=== PATIENT | female | born 1985 | race American Indian/Alaskan Native ===

== ENCOUNTER 2018-07-27 09:34 | Outpatient (CLI) | payer OTHER | END 2018-07-27 10:49 | disposition home or self-care (01) | LOC: NST 09:34 | DX: Z34.83 Encounter for supervision of other normal pregnancy, third trimester (principal) ==

== ENCOUNTER 2018-08-03 09:44 | Inpatient (IN) | payer OTHER ==
[~2018-08-03] VITALS: Ht 162.6 cm; Wt 190.0 kg
[2018-09-14] MEDS ORDERED: PRENATABS RX T1 EACH PO (03:43)
[2018-09-14] MEDS ORDERED: FE C TABLET1 EACH PO (03:43)
== END 2018-09-16 14:50 | DRG 807 ==
LOC: OB/GYN 09-04 09:00 → LDR 09-14 03:30 → SURG-SUITE 09-14 20:22
PROC: 10E0XZZ Delivery of Products of Conception, External Approach (ICD-10-PCS; principal; 2018-09-14)
PROC: 0KQM0ZZ Repair Perineum Muscle, Open Approach (ICD-10-PCS; 2018-09-14)
PROC: 3E033VJ Introduction of Other Hormone into Peripheral Vein, Percutaneous Approach (ICD-10-PCS; 2018-09-14)
PROC: 4A1HXCZ Monitoring of Products of Conception, Cardiac Rate, External Approach (ICD-10-PCS; 2018-09-14)
DX: O70.1 Second degree perineal laceration during delivery (principal); Z37.0 Single live birth; Z3A.41 41 weeks gestation of pregnancy

== ENCOUNTER 2018-08-31 08:50 | Outpatient (CLI) | payer OTHER | END 2018-08-31 09:45 | disposition home or self-care (01) | LOC: NST 08:50 | DX: Z34.83 Encounter for supervision of other normal pregnancy, third trimester (principal) ==

== ENCOUNTER 2018-09-04 08:47 | Outpatient (CLI) | payer OTHER | END 2018-09-04 09:38 | disposition home or self-care (01) | LOC: NST 08:47 | DX: Z34.03 Encounter for supervision of normal first pregnancy, third trimester (principal) ==

== ENCOUNTER 2018-09-07 07:27 | Outpatient (CLI) | payer OTHER | END 2018-09-07 08:09 | disposition home or self-care (01) | LOC: NST 07:27 | DX: Z34.03 Encounter for supervision of normal first pregnancy, third trimester (principal) ==

== ENCOUNTER 2018-09-08 12:45 | Outpatient (CLI) | payer OTHER | END 2018-09-08 13:30 | disposition home or self-care (01) | LOC: OBS/DEL 12:45 | DX: O47.1 False labor at or after 37 completed weeks of gestation (principal) ==

== ENCOUNTER 2018-09-11 09:52 | Outpatient (CLI) | payer OTHER | END 2018-09-11 10:53 | disposition home or self-care (01) | LOC: NST 09:52 | DX: Z34.83 Encounter for supervision of other normal pregnancy, third trimester (principal) ==